=== PATIENT | male | born 1955 | race American Indian/Alaskan Native ===

== ENCOUNTER 2021-08-18 14:29 | Emergency (ER) | payer OTHER ==
[2021-08-18] MEDS ORDERED: IBUPROFEN 600 MG TAB PO ONE (16:33)
[2021-08-18] MEDS ORDERED: ACETAMINOPHEN 325 MG TAB PO ONE (16:33)
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
[2021-08-18 18:13] VITALS: BP 126/72
== END 2021-08-18 18:13 | disposition home or self-care (01) ==
LOC: ED 14:29
DX: S22.39XB Fracture of one rib, unspecified side, initial encounter for open fracture (principal); V49.88XA Car occupant (driver) (passenger) injured in other specified transport accidents, initial encounter; Y93.89 Activity, other specified; Y92.89 Other specified places as the place of occurrence of the external cause; Y99.8 Other external cause status
CPT/HCPCS: 99283